=== PATIENT | male | born 1990 | race African-American/Black ===

== ENCOUNTER 2025-08-11 14:07 | Emergency (ER) | payer SELFPAY ==
[~2025-08-11] VITALS: Ht 193 cm; Wt 129.5 kg
[2025-08-11 14:34] VITALS: O2SAT 100
[2025-08-11 14:35] VITALS: BP 137/103; PULSE 74; RESP 18; TEMP 36.8; O2SAT 99
[2025-08-11] MEDS ORDERED: OFLO5DRO4 LEFT EAR (23:46)
== END 2025-08-11 16:40 | disposition left against medical advice (07) ==
LOC: ER 14:07
DX: H92.09 Otalgia, unspecified ear (principal)
CPT/HCPCS: 99281

== ENCOUNTER 2025-08-11 22:32 | Emergency (ER) | payer SELFPAY ==
[~2025-08-11] VITALS: Ht 193 cm; Wt 127.0 kg
[2025-08-11 22:37] VITALS: O2SAT 100
[2025-08-11] MEDS ORDERED: OFLO5DRO4 LEFT EAR (23:46)
[2025-08-12] MEDS: ACETAMINOPHEN 325MG TABLET PO ONE (00:16)
[2025-08-12 00:33] VITALS: BP 165/106; PULSE 63; RESP 15; TEMP 36.8; O2SAT 100
== END 2025-08-12 00:33 | disposition home or self-care (01) ==
LOC: ER 22:32
DX: H60.92 Unspecified otitis externa, left ear (principal)
CPT/HCPCS: 99283